=== PATIENT | female | born 1955 | race Caucasian/White ===

== ENCOUNTER → 2018-10-26 | Outpatient (CLI) | payer OTHER ==
--- NOTE | 2018-10-26 14:39 | RAD ---
CHEST PA LATERAL CLINICAL INDICATION: Bronchitis, chest pain, cough, tightness in chest COMPARISON: None FINDINGS: Heart is normal in size. Mild prominence of central bilateral peribronchial brandt seen. No focal consolidation. No pneumothorax or pleural effusion. Visualized bony thorax is within normal limits. IMPRESSION: Mild bronchitis. Electronically signed by: Reynaldo Haynes DO (10/26/2018 2:34 PM) [id number]
== END | disposition home or self-care (01) ==
LOC: RAD 10:06
PROVIDERS: ATTEND Physician Assistant Medical
DX: J40 Bronchitis, not specified as acute or chronic (principal); R05 Cough; R07.89 Other chest pain
CPT/HCPCS: 71046

== ENCOUNTER → 2019-09-23 | Outpatient (CLI) | payer OTHER ==
--- NOTE | 2019-09-23 09:06 | RAD ---
2 view left hip study with AP view pelvis Clinical indications: Left hip pain radiating to thigh. Patient fell 2 weeks ago. FINDINGS: No acute fracture or dislocation or lytic process is evident. No diastases of the symphysis pubis or either SI joint is seen. There is mild asymmetric joint space narrowing of the left hip joint. Tiny spur of the left femoral head is seen. There is mild degenerative spurring of the right femoral head without joint space narrowing of the right hip joint. IMPRESSION: No acute osseous abnormality. 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 Electronically signed by: Juan Negro MD (09/23/2019 9:03 AM) [facility]
== END | disposition home or self-care (01) ==
LOC: DXRAD 08:20
PROVIDERS: ATTEND Physician Assistant Medical
DX: M16.0 Bilateral primary osteoarthritis of hip (principal)
CPT/HCPCS: 73502

== ENCOUNTER → 2019-09-26 | Outpatient (CLI) | payer OTHER ==
--- NOTE | 2019-09-26 08:18 | RAD ---
EXAM: Lumbar spine, 3 views. HISTORY: Radiculopathy. COMPARISON: None. FINDINGS: 3 views of the lumbar spine are obtained. There is minimal grade 1 anterolisthesis of L5 on S1. There is multilevel endplate remodeling. There is slight disc space narrowing and vacuum phenomenon at L2-L3. There is facet arthropathy predominantly the lumbosacral junction. There are surgical clips within the upper abdomen. There is a suspected incidental peripherally calcified splenic artery aneurysm measuring 1.5 cm. IMPRESSION: 1. Multilevel degenerative change throughout the lumbar spine. 2. No acute osseous finding. Electronically signed by: Michell Bass MD (09/26/2019 8:15 AM) [facility]
== END | disposition home or self-care (01) ==
LOC: DXRAD 07:35
PROVIDERS: ATTEND Physician Assistant Medical
DX: M43.17 Spondylolisthesis, lumbosacral region (principal); M47.816 Spondylosis without myelopathy or radiculopathy, lumbar region; M12.88 Other specific arthropathies, not elsewhere classified, other specified site
CPT/HCPCS: 72110

== ENCOUNTER → 2020-09-05 | Outpatient (CLI) | payer OTHER ==
--- NOTE | 2020-09-05 11:07 | RAD ---
AP and Lateral Views of the Chest 09/05/2020 12:00 AM Indication: Reason: COUGH, COPD / Spl. Instructions: / History: Comparison: Chest radiograph October 26, 2018 Findings: There is no focal consolidation or infiltrate identified. Calcified granuloma, left lower lobe noted. The cardiomediastinal silhouette is within normal limits. There is no evidence of pneumothorax or pleural effusion. No acute osseous abnormalities are identified. Impression: No evidence of acute cardiopulmonary process. Electronically signed by: Lexa Veloz MD (09/05/2020 11:05 AM) [id number]
== END ==
LOC: PMG 09:33
PROVIDERS: ATTEND Physician Assistant Medical
DX: J44.9 Chronic obstructive pulmonary disease, unspecified (principal)
CPT/HCPCS: 71046

== ENCOUNTER → 2020-11-05 | Outpatient (CLI) | payer OTHER ==
--- NOTE | 2020-11-06 17:39 | RAD ---
Exam: Pelvis with bilateral hips INDICATION: Hip and back pain, no known injury TECHNIQUE: Frontal view of pelvis with frontal and frog-leg lateral views of the right and left hip Comparisons: None FINDINGS: Bone mineralization is normal. No acute or healed fractures. Soft tissues are unremarkable. There is mild degenerative change at the right hip joint. There is mild osteoarthritic change at the left hip joint. IMPRESSION: Mild bilateral osteoarthritic change at the hip joints. No acute abnormality identified. Electronically signed by: Dawn Young MD (11/06/2020 5:36 PM) [facility]
--- NOTE | 2020-11-06 17:42 | RAD ---
Exam: Lumbar spine 4 views INDICATION: Hip and back pain TECHNIQUE: Frontal, lateral, and bilateral oblique views Comparisons: 09/26/2019 FINDINGS: Vertebral body heights and alignment are well-maintained. There is mild degenerative disc disease greatest at L2-L3. Diffuse bilateral facet arthropathy noted in the lumbar spine greatest at L4-L5 and L5-S1. Visualized paraspinal soft tissues are unremarkable. IMPRESSION: Mild spondylotic changes lumbar spine as described above. Electronically signed by: Dawn Young MD (11/06/2020 5:39 PM) [facility]
== END ==
LOC: PMG 15:26
PROVIDERS: ATTEND Physician Assistant Medical
DX: M16.0 Bilateral primary osteoarthritis of hip (principal); M47.816 Spondylosis without myelopathy or radiculopathy, lumbar region; M51.36 Other intervertebral disc degeneration, lumbar region
CPT/HCPCS: 72110; 73521

== ENCOUNTER → 2021-06-03 | Outpatient (CLI) | payer OTHER ==
--- NOTE | 2021-06-03 15:29 | CARD ---
MR#: [id number] Date of Study: 06/03/2021 Ordering Physician: ABRAHAN SAGASTUME, Referring Physician: ABRAHAN SAGASTUME, Tech: Meka Morrell, [facility] APPROVED REPORT EXAM: Two-dimensional and M-mode echocardiogram with Doppler and color Doppler. Other Information HR: 87bpm INDICATION COPD Hypertension/HCVD RISK FACTORS Smoking 2D DIMENSIONS RVDd2.7 (2.9-3.5cm)Left Atrium(2D)2.7 (1.6-4.0cm) IVSd1.1 (0.7-1.1cm)Aortic Root(2D)2.6 (2.0-3.7cm) LVDd4.1 (3.9-5.9cm)LVOT Diameter2.0 (1.8-2.4cm) PWd0.9 (0.7-1.1cm)LVDs2.3 (2.5-4.0cm) FS (%) 44.9 %SV57.3 ml LVEF(%)74.6 (>50%) Aortic Valve AoV Peak Jacobo.164.1cm/sAoV VTI35.6cm AO Peak GR.10.8mmHgLVOT Peak Jacobo.105.1cm/s LVOT VTI 20.94cmAO Mean GR.6mmHg ROSALES (VMAX)2.40ry5XRX (VTI)1.92cm2 Mitral Valve MV E Zzzfoobv14.5cm/sMV DECEL CEMY212iv MV A Joeqfslo735.3cm/sE/A Ratio0.8 Pulmonary Valve PV Peak Jpkwwoaf21.8cm/sPV Peak Grad.3mmHg Tricuspid Valve TR P. Dmuldofb744ny/sRAP AVVNYFYR9mrNi TR Peak Gr.08mlYsOBZQ63ulJt Pulmonary Vein S1 Epzvzcvp43.5cm/sD2 Kylntpbh43.8cm/s LEFT VENTRICLE The left ventricle is normal size. There is borderline to mild concentric left ventricular hypertroph y. The left ventricular systolic function is normal. The Ejection Fraction is 60-65%. There is normal LV segmental wall motion. Transmitral Doppler flow pattern is Grade I-abnormal relaxation pattern. RIGHT VENTRICLE The right ventricle is normal size. There is normal right ventricular wall thickness. The right ventr icular systolic function is normal. ATRIA The left atrium size is normal. The right atrium size is normal. The interatrial septum is intact wit h no evidence for an atrial septal defect or patent foramen ovale as noted on 2-D or Doppler imaging. AORTIC VALVE The aortic valve is normal in structure and function. Doppler and Color Flow revealed no significant aortic regurgitation. There is no significant aortic valvular stenosis. Calculated aortic valve area is 2.2 cm2 with maximum pressure gradient of 11 mmHg and mean pressure gradient of 6 mmHg. MITRAL VALVE The mitral valve is normal in structure and function. There is no evidence of mitral valve prolapse. There is no mitral valve stenosis. Doppler and Color Flow revealed no mitral valve regurgitation note d. TRICUSPID VALVE The tricuspid valve is normal in structure and function. Doppler and Color Flow revealed trace tricus pid regurgitation with an estimated PAP of 33 mmHg. There is no tricuspid valve stenosis. PULMONIC VALVE The pulmonic valve is not well visualized. Doppler and Color Flow revealed trace pulmonic valvular re gurgitation. GREAT VESSELS The aortic root is normal in size. The IVC is normal in size and collapses >50% with inspiration. PERICARDIAL EFFUSION There is no evidence of significant pericardial effusion. Critical Notification Critical Value: No <Conclusion> The left ventricular systolic function is normal. The Ejection Fraction is 60-65%. There is normal LV segmental wall motion. Transmitral Doppler flow pattern is Grade I-abnormal relaxation pattern. Trace tricuspid regurgitation with an estimated PAP of 33 mmHg. There is no evidence of significant pericardial effusion. Signed by : Hal Hernandez, Electronically Approved : 06/03/2021 15:29:01
== END ==
LOC: ECHO 12:46
PROVIDERS: ATTEND Physician Assistant Medical
DX: I51.7 Cardiomegaly (principal); I10 Essential (primary) hypertension
CPT/HCPCS: 93306

== ENCOUNTER 2021-07-05 12:53 | Emergency (ER) | payer OTHER, MEDICARE ==
[~2021-07-05] VITALS: Ht 165.1 cm; Wt 78.2 kg
[2021-07-05 13:11] VITALS: BP 127/60
--- NOTE | 2021-07-05 13:30 | PHYS DOC ---
Past History Additional Past Medical Histor: diverticulosis Past Surgical History: Appendectomy, Cholecystectomy Alcohol Use: None General Adult EDM: Chief Complaint: LOWER EXTREMITY SWELLING HPI: HPI: 65-year-old female presents from Dr. Whitaker's office with abdominal distention and left lower leg swelling. The patient has done 2 different rounds of Lasix because she had bilateral lower extremity swelling. The right leg is gone down completely, but the left has come back and is still swollen. Her calf is painful and she is getting a tingling sensation radiates up and down the leg. Her last Lasix pills 5 days ago. Over the last 2 days, she is also developed abdominal distention. Her abdomen is much more full and firm than normal. She denies fever or chills. She does admit to shortness of breath and decreased exercise tolerance. The patient is a smoker. Review of Systems: Review of Systems: Constitutional: Denies fever or chills Eyes: Denies change in visual acuity HENT: Denies nasal congestion or sore throat Respiratory: Denies cough or shortness of breath Cardiovascular: Denies chest pain or edema GI: No abdominal distention. Denies nausea, vomiting, bloody stools or diarrhea : Denies dysuria Musculoskeletal: Left lower leg swelling Integument: Denies rash Neurologic: Denies headache, focal weakness or sensory changes Endocrine: Denies polyuria or polydipsia Lymphatic: Denies swollen glands Psychiatric: Denies depression or anxiety Allergies: Allergies: Allergies Coded Allergies Type Severity Reaction Last Updated Verified No Known Drug Allergies 07/05/21 No Physical Exam: PE: Constitutional: Well developed, well nourished, no acute distress, non-toxic appearance. [] HENT: Normocephalic, atraumatic, bilateral external ears normal, oropharynx moist, no oral exudates, nose normal. [] Eyes: PERRLA, EOMI, conjunctiva normal, no discharge. [] Neck: Normal range of motion, no tenderness, supple, no stridor. [] Cardiovascular: Heart rate regular rhythm, no murmur [] Lungs & Thorax: Bilateral breath sounds clear to auscultation [] Abdomen: Bowel sounds normal, firm, distended, no tenderness. [] Skin: Warm, dry, no erythema, no rash. [] Back: No tenderness, no CVA tenderness. [] Extremities: Tenderness of the left calf, 2+ pitting edema of the left lower leg. [] Neurologic: Alert and oriented X 3, normal motor function, normal sensory function, no focal deficits noted. [] Psychologic: Affect normal, judgement normal, mood normal. [] Current Patient Data: Vital Signs: Vital Signs Date Time Temp Pulse Resp B/P (MAP) Pulse Ox O2 Delivery O2 Flow Rate FiO2 07/05/21 13:11 97.0 112 26 127/60 (82) 93 EKG: EKG: Sinus rhythm, rate 108, normal axis, no ST elevation or depression. [] Radiology/Procedures: Radiology/Procedures: [] Impressions: STUDY: US DPLX VENOUS EXTREMITY LOWER LT INDICATION: Lower extremity swelling and pain. DVT. TECHNIQUE: Color-flow and pulsed wave duplex ultrasound with compression of venous structures of the left lower extremity. COMPARISON: None. FINDINGS: Duplex ultrasound with compression of the deep venous structures of the left lower extremity from the common femoral vein through the popliteal vein is negative for DVT. The posterior tibial and peroneal veins are segmentally visualized and patent where seen. Normal venous waveforms and augmentation are noted throughout. IMPRESSION: No deep venous thrombosis throughout the left lower extremity. Electronically signed by: HILARIO BARBOZA MD (07/05/2021 2:08 PM) [facility] DICTATED AND SIGNED BY: HILARIO BARBOZA MD DATE: 07/05/21 1407 CC: SHAVON LENZ DO; ABRAHAN SAGASTUME PA ~MTH0 0 EXAMINATION: CT abdomen and pelvis with IV contrast. INDICATION:65 years, Female, abdominal distention. TECHNIQUE: Axial CT images of the abdomen and pelvis were obtained. Coronal and sagittal reformatted performed. COMPARISON: None. Exposure: One or more of the following individualized dose reduction techniques were utilized for this examination: 1. Automated exposure control 2. Adjustment of the mA and/or kV according to patient size 3. Use of iterative reconstruction technique. FINDINGS: LOWER CHEST: Calcified granuloma in the left lower lobe. Subsegmental atelectasis versus scarring in the right middle lobe ABDOMEN/PELVIS: Mild hepatomegaly with diffuse steatosis, measures 17 cm in length. No suspicious focal hepatic lesion. Spleen and pancreas are unremarkable. Cholecystectomy. No biliary ductal dilatation. Nodular thickening of the left adrenal gland without discrete nodule. Right adrenal gland is unremarkable. No hydronephrosis or nephrolithiasis in either kidney. No bowel obstruction. Few colonic diverticulosis without diverticulitis. Appendix is not seen with certainty. Apparent wall thickening of the sigmoid colon without adjacent fat stranding, may relate to underdistention lumen versus diverticular disease. Moderate aortoiliac atherosclerotic calcifications without narrowing or dilatation. No ascites or pneumoperitoneum. No abdominopelvic lymphadenopathy by size criteria. There is a 1.2 cm soft tissue nodule with peripheral calcification in the gastrohepatic pancreatic interval, may represent calcified lymph node. Underdistended urinary bladder which limits evaluation. Unremarkable uterus. There is a 4.8 cm probably benign left adnexal cystic lesion with eccentric calcified focus. No discrete soft tissue component. MUSCULOSKELETAL: No acute osseous process. Multilevel degenerative changes in the spine. Multiple calcified injection granulomas in the gluteal regions. Small to moderate right and small left fat-containing inguinal hernias. IMPRESSION: 1. No acute abnormality in the abdomen or pelvis, specifically no evidence of bowel obstruction. 2. Diffuse hepatic steatosis. 3. Probably benign 4.8 cm left adnexal cystic lesion with eccentric calcified focus. Further evaluation with pelvic ultrasound is recommended White Paper of the ACR Incidental Findings Committee II on Adnexal Findings (J Am Jatinder Radiol 2013;10:675-68) Electronically signed by: Gabriela Dodd MD (07/05/2021 2:50 PM) [id number] DICTATED AND SIGNED BY: GABRIELA DODD MD DATE: 07/05/21 1439 CC: SHAVON LENZ DO; ABRAHAN SAGASTUME ~MTH0 0 XR CHEST 1V History: Shortness of breath. Comparison: 09/05/2020 Technique: Portable AP radiograph of the chest. Findings: The lungs are adequately inflated. There is subtle opacification of the left lower lung. No pleural effusion or pneumothorax. Cardiac mediastinal silhouette and pulmonary vasculature are within normal limits. Osseous structures and soft tissues are unremarkable. Impression: 1. Subtle left lower lung opacity concerning for infiltrate or atelectasis. Electronically signed by: Delgado Haynes MD (07/05/2021 1:41 PM) [id number] DICTATED AND SIGNED BY: DELGADO HAYNES MD DATE: 07/05/21 1339 CC: SHAVON LENZ DO; ABRAHAN SAGASTUME ~MTH0 0 US PELVIS W/TV History: Reason: LT ADNEXAL MASS / Spl. Instructions: / History: Comparison: CT July 05, 2021 Technique: Grayscale and color Doppler imaging of the pelvis was performed using transabdominal and transvaginal technique. Findings: The uterus measures 6.0 x 3.8 x 2.8 cm. Small nabothian cyst. Minimal fluid within the endometrial canal. The endometrial stripe measures 4 mm. Right ovary not identified due to positioning and overlying structures. Left ovary measures 4.5 x 3.7 x 2.9 cm. Left ovarian simple cyst measures 4.5 x 3.7 x 2.9 cm. Normal Doppler flow to the ovaries. No adnexal masses are seen. IMPRESSION: 1. Left ovarian cyst. Recommend 3-6 month follow-up. 2. Minimal fluid within the endometrial canal. Electronically signed by: Tadeo Tobias DO (07/05/2021 4:12 PM) [facility] DICTATED AND SIGNED BY: TADEO TOBIAS DO DATE: 07/05/21 1604 CC: SHAVON LENZ DO; ABRAHAN SAGASTUME PA ~MTH0 0 Heart Score: C/O Chest Pain: No Risk Factors: Risk Factors: DM, Current or recent (<one month) smoker, HTN, HLP, family history of CAD, obesity. Risk Scores: Score 0 - 3: 2.5% MACE over next 6 weeks - Discharge Home Score 4 - 6: 20.3% MACE over next 6 weeks - Admit for Clinical Observation Score 7 - 10: 72.7% MACE over next 6 weeks - Early Invasive Strategies Course & Med Decision Making: Course & Med Decision Making Pertinent Labs and Imaging studies reviewed. (See chart for details) The patient's labs are unremarkable. Her liver enzymes are normal. Her proBNP is normal. Troponin is negative. EKG is unremarkable. The patient CT of the abdomen and pelvis shows diffuse hepatic steatosis and a 4.8 cm left adnexal cystic lesion. There are no other significant findings. See official read for more details. I do recommend ultrasound for further clarification. I have ordered this. Chest x-ray shows subtle left lower lung opacity which could be atelectasis or infiltrate. The labs and presentation do not support infiltrate. The patient's ultrasound of the pelvis also suggests a cyst instead of mass. I have advised the patient try JUNG hose to help with her uneven lower extremity edema. She is stable for discharge at this time. [] Carloson Disclaimer: Dragon Disclaimer: This electronic medical record was generated, in whole or in part, using a voice recognition dictation system. Departure Departure: Impression: Primary Impression: Edema of left lower leg Additional Impression: Left ovarian cyst Disposition: HOME / SELF CARE / HOMELESS Condition: STABLE Referrals: ABRAHAN SAGASTUME (PCP) Patient Instructions: Edema, Sehc-oz-Qlex, Ovarian Cyst, [id number] Scripts Oxycodone HCl/Acetaminophen (Percocet 5-325 mg Tablet) 1 Each Tablet 1 TAB PO PRN QID PRN for PAIN MDD 4 Tablet(s), #16 TAB 0 Refills Prov: SHAVON LENZ DO 07/05/21 SHAVON LENZ DO Jul 05, 2021 13:30
--- NOTE | 2021-07-05 13:38 | EKG ---
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
--- NOTE | 2021-07-05 13:43 | RAD ---
XR CHEST 1V History: Shortness of breath. Comparison: 09/05/2020 Technique: Portable AP radiograph of the chest. Findings: The lungs are adequately inflated. There is subtle opacification of the left lower lung. No pleural e ffusion or pneumothorax. Cardiac mediastinal silhouette and pulmonary vasculature are within normal l imits. Osseous structures and soft tissues are unremarkable. Impression: 1. Subtle left lower lung opacity concerning for infiltrate or atelectasis. Electronically signed by: Delgado Bryant MD (07/05/2021 1:41 PM) [id number]
[2021-07-05 13:52] LABS: BASO % 1 % (0-3); EOS # 0.1 x10^3/uL (0.0-0.7); EOS % 1 % (0-3); HEMATOCRIT 43.4 % (36.0-47.0); LYMPH # 3.9 x10^3/uL (1.0-4.8); LYMPH % 49 % (24-48); MEAN CORPUSCULAR HEMOGLOBIN 33 pg (25-35); MEAN CORPUSCULAR HGB CONC 35 g/dL (31-37); MEAN CORPUSCULAR VOLUME 96 fL (79-100); MONO # 0.9 x10^3/uL (0.0-1.1); MONO % 11 % (0-9); NEUT # 3.1 x10^3uL (1.8-7.7); NEUT % 39 % (31-73); PLATELET COUNT 302 x10^3/uL (140-400); RED BLOOD COUNT 4.53 x10^6/uL (3.50-5.40); RED CELL DISTRIBUTION WIDTH 12.8 % (11.5-14.5); WHITE BLOOD COUNT 7.9 x10^3/uL (4.0-11.0)
[2021-07-05 13:58] LABS: CALCIUM 9.1 mg/dL (8.5-10.1); CREATININE 0.8 mg/dL (0.6-1.0); POTASSIUM 3.7 mmol/L (3.5-5.1)
[2021-07-05 14:10] LABS: ALBUMIN 3.5 g/dL (3.4-5.0); ALBUMIN/GLOBULIN RATIO 0.7 (1.0-1.7); TOTAL BILIRUBIN 0.2 mg/dL (0.2-1.0); TOTAL PROTEIN 8.2 g/dL (6.4-8.2)
--- NOTE | 2021-07-05 14:10 | RAD ---
STUDY: US DPLX VENOUS EXTREMITY LOWER LT INDICATION: Lower extremity swelling and pain. DVT. TECHNIQUE: Color-flow and pulsed wave duplex ultrasound with compression of venous structures of the left lower extremity. COMPARISON: None. FINDINGS: Duplex ultrasound with compression of the deep venous structures of the left lower extremity from the common femoral vein through the popliteal vein is negative for DVT. The posterior tibial and peroneal veins are segmentally visualized and patent where seen. Normal veno us waveforms and augmentation are noted throughout. IMPRESSION: No deep venous thrombosis throughout the left lower extremity. Electronically signed by: HILARIO BARBOZA MD (07/05/2021 2:08 PM) [facility]
[2021-07-05] MEDS: IOHEXOL 300 MG/ML 75 ML VIAL. IV ONE (14:31)
--- NOTE | 2021-07-05 14:52 | RAD ---
EXAMINATION: CT abdomen and pelvis with IV contrast. INDICATION:65 years, Female, abdominal distention. TECHNIQUE: Axial CT images of the abdomen and pelvis were obtained. Coronal and sagittal reformatted performed. COMPARISON: None. Exposure: One or more of the following individualized dose reduction techniques were utilized for thi s examination: 1. Automated exposure control 2. Adjustment of the mA and/or kV according to patient size 3. Use of iterative reconstruction technique. FINDINGS: LOWER CHEST: Calcified granuloma in the left lower lobe. Subsegmental atelectasis versus scarring in the right mid dle lobe ABDOMEN/PELVIS: Mild hepatomegaly with diffuse steatosis, measures 17 cm in length. No suspicious focal hepatic lesio n. Spleen and pancreas are unremarkable. Cholecystectomy. No biliary ductal dilatation. Nodular thick ening of the left adrenal gland without discrete nodule. Right adrenal gland is unremarkable. No hydr onephrosis or nephrolithiasis in either kidney. No bowel obstruction. Few colonic diverticulosis without diverticulitis. Appendix is not seen with ce rtainty. Apparent wall thickening of the sigmoid colon without adjacent fat stranding, may relate to underdistention lumen versus diverticular disease. Moderate aortoiliac atherosclerotic calcifications without narrowing or dilatation. No ascites or pneumoperitoneum. No abdominopelvic lymphadenopathy b y size criteria. There is a 1.2 cm soft tissue nodule with peripheral calcification in the gastrohepa tic pancreatic interval, may represent calcified lymph node. Underdistended urinary bladder which munson its evaluation. Unremarkable uterus. There is a 4.8 cm probably benign left adnexal cystic lesion wit h eccentric calcified focus. No discrete soft tissue component. MUSCULOSKELETAL: No acute osseous process. Multilevel degenerative changes in the spine. Multiple calcified injection granulomas in the gluteal regions. Small to moderate right and small left fat-containing inguinal her nias. IMPRESSION: 1. No acute abnormality in the abdomen or pelvis, specifically no evidence of bowel obstruction. 2. Diffuse hepatic steatosis. 3. Probably benign 4.8 cm left adnexal cystic lesion with eccentric calcified focus. Further evaluati on with pelvic ultrasound is recommended White Paper of the ACR Incidental Findings Committee II on Adnexal Findings (J Am Jatinder Radiol 2013;10 :675-68) Electronically signed by: Marielle Dodd MD (07/05/2021 2:50 PM) [id number]
[2021-07-05] MEDS ORDERED: OXYC-325 PO (15:24)
[2021-07-05] MEDS: oxyCODONE/APAP 5/325 1 TAB TABLET PO ONE (15:30)
--- NOTE | 2021-07-05 16:14 | RAD ---
US PELVIS W/TV History: Reason: LT ADNEXAL MASS / Spl. Instructions: / History: Comparison: CT July 05, 2021 Technique: Grayscale and color Doppler imaging of the pelvis was performed using transabdominal and t ransvaginal technique. Findings: The uterus measures 6.0 x 3.8 x 2.8 cm. Small nabothian cyst. Minimal fluid within the endometrial c anal. The endometrial stripe measures 4 mm. Right ovary not identified due to positioning and overlying structures. Left ovary measures 4.5 x 3.7 x 2.9 cm. Left ovarian simple cyst measures 4.5 x 3.7 x 2.9 cm. Normal Doppler flow to the ovaries. No adnexal masses are seen. IMPRESSION: 1. Left ovarian cyst. Recommend 3-6 month follow-up. 2. Minimal fluid within the endometrial canal. Electronically signed by: Tadeo Tobias DO (07/05/2021 4:12 PM) [facility]AN[facility]
[2021-07-05] MEDS ORDERED: FURO-68 PO (16:48)
== END 2021-07-05 16:53 | disposition home or self-care (01) ==
LOC: ER 12:53
DX: R60.9 Edema, unspecified (principal); N83.202 Unspecified ovarian cyst, left side; Z90.49 Acquired absence of other specified parts of digestive tract
CPT/HCPCS: 36415; 71045; 74177; 76830; 76856; 80053; 83880; 84484; 85025; 93005; 93971; 99285; Q9967

== ENCOUNTER → 2021-10-16 | Outpatient (CLI) | payer OTHER, MEDICARE ==
[~2021-10-16] MED LIST: FURO-68 PO; OXYC-325 PO
--- NOTE | 2021-10-16 10:54 | RAD ---
EXAM: Chest, 2 views. HISTORY: Cough and fever. COMPARISON: 07/05/2021 FINDINGS: 2 views of the chest are obtained. There is no infiltrate, pleural effusion or pneumothorax . The heart is normal in size. There are calcified granulomas. IMPRESSION: No acute pulmonary finding. Electronically signed by: Michell Bass MD (10/16/2021 10:52 AM) [id number]
== END ==
LOC: RAD 10:35
PROVIDERS: ATTEND Physician Assistant Medical
DX: J44.9 Chronic obstructive pulmonary disease, unspecified (principal); R06.02 Shortness of breath; R50.9 Fever, unspecified; R05.9 Cough, unspecified
CPT/HCPCS: 71046

== ENCOUNTER 2021-10-29 09:00 | Emergency (ER) | payer OTHER, MEDICARE ==
[~2021-10-29] VITALS: Ht 165.1 cm; Wt 79.5 kg
[2021-10-29] MEDS ORDERED: KETOROLAC 30 MG/ML VIAL. IVP ONE (09:30)
--- NOTE | 2021-10-29 09:31 | PHYS DOC ---
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) Past Surgical History: Appendectomy, Cholecystectomy (BROOKE RUBIO APRN) Alcohol Use: None (BROOKE RUBIO APRN) Adult General Chief Complaint Chief Complaint: WEAKNESS/GENERALIZED HPI HPI Patient is a 66-year-old female who presents emergency department with chief complaint of testing positive for the COVID-19 virus 2 weeks ago, since then has experienced general malaise with with body aches, loss of taste and loss of smell, states has been sleeping a lot and has developed lower to mid upper back discomfort for the past week, has noticed her urine is looking darker than normal however denies increased urination, urinary pressure, urinary pain or other dysuria, denies seeing blood in her urine, denies nausea, vomiting, or diarrhea. Denies chest pains, reports feeling short of breath at times that is relieved with her albuterol MDI inhaler, describes her back pain as an achy pain, slow onset, 10 out of 10 pain currently, has not taken [id number] or prescription pain medications today, has not taken her other home medications such as Lasix today, reports when she takes [id number] Advil her back pain is relieved down to a 5 out of 10. Patient denies headaches, syncopal or near syncopal episodes, denies other physical complaints or physical concerns. Patient does admit to cigarette smoking daily, denies alcohol use or illicit drug use. (BROOKE RUBIO APRN) Review of Systems Review of Systems 14 body systems of review of systems have been reviewed. See HPI for pertinent positives and negative responses, otherwise all other systems are negative, nonpertinent or noncontributory. Constitutional: Negative except as outlined in HPI above. Skin: Negative except as outlined in HPI above. Eyes: Negative except as outlined in HPI above. HENT: Negative except as outlined in HPI above. Respiratory: Negative except as outlined in HPI above. Cardiovascular: Negative except as outlined in HPI above. GI: Negative except as outlined in HPI above. : Negative except as outlined in HPI above. Musculoskeletal: Negative except as outlined in HPI above. Integument: Negative except as outlined in HPI above. Neurologic: Negative except as outlined in HPI above. Endocrine: Negative except as outlined in HPI above. Lymphatic: Negative except as outlined in HPI above. Psychiatric: Negative except as outlined in HPI above. (BROOKE RUBIO APRN) Allergies Allergies Allergies Coded Allergies Type Severity Reaction Last Updated Verified No Known Drug Allergies 07/05/21 No (BROOKE RUBIO APRN) Physical Exam Physical Exam Constitutional: Well developed, well nourished, no acute distress, non-toxic appearance. 66-year-old female in no apparent distress. HENT: Normocephalic, atraumatic. Oropharynx moist, pink, no deep tissue infectious process appreciated, no lymphadenopathy of the head or neck appreciated, bilateral TMs intact and within normal limits, patient speaking in normal voice tones. Eyes: Conjunctiva normal, no discharge. Neck: Normal range of motion, no stridor. No C-spine pain, no nuchal rigidity, no meningismus signs. Cardiovascular: No cyanosis appreciated, distal cap refill less than 2 seconds. Heart sounds S1-S2, regular rate and rhythm. Lungs & Thorax: Patient is tachypneic, lung sounds coarse all lung forrest, respiratory rate 28/min, no use of accessory muscles appreciated. Abdomen: Nontender, no abnormalities noted. Normal bowel sounds all 4 quadrants. Skin: Warm, dry, no erythema, no rash. Back: No deformities appreciated, no midline spinal tenderness, pain to palpation along the muscular structures of the lumbar and upper mid back area, no crepitus or subcu air appreciated, no skin discoloration appreciated. Extremities: No tenderness, no cyanosis, no clubbing, ROM intact, 1+ bilateral pedal edema, 2+ radial and dorsalis pedis pulses bilaterally. Neurologic: Alert and oriented X 3, normal motor function, normal sensory function, no focal deficits noted. Psychologic: Affect normal, judgement normal, mood normal. (BROOKE RUBIO APRN) Current Patient Data Vital Signs Vital Signs Date Time Temp Pulse Resp B/P (MAP) Pulse Ox O2 Delivery O2 Flow Rate FiO2 10/29/21 09:16 102 24 106/76 (86) 93 Room Air Lab Results Laboratory Tests Test 10/29/21 09:26 10/29/21 09:39 Urine Collection Type Unknown Urine Color Yellow Urine Clarity Hazy Urine pH 6.5 Urine Specific [place] 1.015 Urine Protein Neg Urine Glucose (UA) Neg mg/dL Urine Ketones (Stick) Neg mg/dL Urine Blood Neg Urine Nitrite Neg Urine Bilirubin Neg Urine Urobilinogen Dipstick 0.2 mg/dL Urine Leukocyte Esterase Mod Urine RBC 1-2 /HPF Urine WBC 5-10 /HPF Urine Squamous Epithelial Cells Many /LPF Urine Bacteria 0 /HPF White Blood Count 9.8 x10^3/uL Red Blood Count 4.53 x10^6/uL Hemoglobin 14.9 g/dL Hematocrit 43.5 % Mean Corpuscular Volume 96 fL Mean Corpuscular Hemoglobin 33 pg Mean Corpuscular Hemoglobin Concent 34 g/dL Red Cell Distribution Width 12.6 % Platelet Count 554 x10^3/uL Neutrophils (%) (Auto) 45 % Lymphocytes (%) (Auto) 41 % Monocytes (%) (Auto) 12 % Eosinophils (%) (Auto) 2 % Basophils (%) (Auto) 1 % Neutrophils # (Auto) 4.4 x10^3uL Lymphocytes # (Auto) 4.0 x10^3/uL Monocytes # (Auto) 1.1 x10^3/uL Eosinophils # (Auto) 0.2 x10^3/uL Basophils # (Auto) 0.1 x10^3/uL Sodium Level 140 mmol/L Potassium Level 4.0 mmol/L Chloride Level 101 mmol/L Carbon Dioxide Level 33 mmol/L Anion Gap 6 Blood Urea Nitrogen 17 mg/dL Creatinine 0.9 mg/dL Estimated GFR (Cockcroft-Gault) 62.6 BUN/Creatinine Ratio 19 Glucose Level 103 mg/dL Calcium Level 8.3 mg/dL Phosphorus Level 4.9 mg/dL Magnesium Level 2.2 mg/dL Total Bilirubin 0.2 mg/dL Aspartate Amino Transf (AST/SGOT) 20 U/L Alanine Aminotransferase (ALT/SGPT) 26 U/L Alkaline Phosphatase 149 U/L Creatine Kinase 54 U/L Troponin I High Sensitivity 5 ng/L LO-Xed-R-Type Natriuretic Peptide 15 pg/mL Total Protein 8.1 g/dL Albumin 3.2 g/dL Albumin/Globulin Ratio 0.7 Lipase 86 U/L Current Medications Medications (Trade) Dose Ordered Sig/Sunita Route PRN Reason Start Time Stop Time Status Last Admin Dose Admin Ketorolac Tromethamine (Toradol 30mg Vial) 30 mg 1X ONCE IVP 10/29/21 09:30 10/29/21 09:31 DC 10/29/21 09:47 (BROOKE RUBIO APRN) EKG EKG EKG performed at 955 by ED nursing staff shows a normal sinus rhythm without other ectopy, heart rate 89 bpm, FL interval 0.138, QTc interval 0.456, no acute STEMI, no ACS, no acute ischemia appreciated, EKG interpreted by ED attending physician Dr. Mendoza. (BROOKE RUBIO APRN) Radiology/Procedures Radiology/Procedures REASON: Shortness of breath, COVID-19 positive 10-08-21 PROCEDURE: CHEST AP ONLY EXAMINATION: XR CHEST 1V. HISTORY: 66 years Female Reason: Shortness of breath, COVID-19 positive 10-08-21 / COMPARISON: October 16, 2021. Findings: The lungs are clear. The heart size is normal. There is no effusion or pneumothorax. The mediastinum and zunilda appear unremarkable. Impression: Unremarkable study. Electronically signed by: Martin Botello MD (10/29/2021 9:52 AM) [id number] (BROOKE RUBIO APRN) Heart Score C/O Chest Pain: No Risk Factors: Risk Factors: DM, Current or recent (<one month) smoker, HTN, HLP, family history of CAD, obesity. Risk Scores: Risk Factors: DM, Current or recent (<one month) smoker, HTN, HLP, family history of CAD, obesity. (BROOKE RUBIO APRN) Course & Med Decision Making Course & Med Decision Making Pertinent Labs and Imaging studies reviewed. (See chart for details) Six 6-year-old female, vital signs reviewed, resents emerged from concerning ongoing symptoms of COVID-19 virus. Physical presentation consistent with viral syndrome, patient does have COPD history and has not taken her medications, with coarse lung sounds and symptomatic back pain will order urinalysis assay, EKG, high-sensitivity troponin I, NT proBNP, CBC, CMP, mag, Phos, CK, chest x-ray, the patient is not hypoxic, maintains a 94 to 95% O2 sat on room air, will give Toradol for what is most likely musculoskeletal back pain, will monitor vital signs and reevaluate after period of time. EKG unremarkable, chest x-ray unremarkable, labs unremarkable or at baseline. The patient's urine is not infected. The patient remains 94 to 95% O2 sat on room air without tachypnea or respiratory distress, patient remains nontoxic in appearance, upon reevaluation of the patient, patient reports relief in back pain from medication given in ED. Discussed with patient viral syndrome symptoms ongoing from positive COVID-19 test. Patient requested retesting, discussed with patient she is already positive for COVID-19 virus, recommended calling primary care provider for ongoing management of her COVID-19 virus symptoms. Discussed with patient cigarette smoking cessation. Will prescribe ketorolac tablets for ongoing or returning back pain. Continue to take all home medications as prescribed by her primary care provider, discussed return ER precautions and concerns, patient gave verbal understanding of and is amenable to ED discharge planning. (BROOKE RUBIO APRN) Course & Med Decision Making I was the Attending physician on the above date of service of this patient. This patient was evaluated, examined, treated, and dispositioned from the emergency department by the mid-level practitioner. Although I was working at the time , no assistance was requested. Electronically signed, Jolynn Mendoza DO (JOLYNN MENDOZA DO) Jaleesa Disclaimer Dragon Disclaimer This electronic medical record was generated, in whole or in part, using a voice recognition dictation system. (BROOKE RUBIO APRN) Departure Departure: Impression: Primary Impression: COVID-19 Additional Impressions: Back pain Viral syndrome Cigarette smoker Disposition: 01 HOME / SELF CARE / HOMELESS Condition: GOOD Referrals: ABRAHAN SAGASTUME (PCP) Patient Instructions: Back Pain, Adult, Viral Syndrome Additional Instructions: You were seen today in the emergency department for ongoing symptoms of your recently diagnosed COVID-19 virus infection, your chest x-ray is clear does not show signs of pneumonia or other infectious process, your lab work did not show any concerning signs of infection or other electrolyte abnormalities. You had expressed pain relief with the medication given in the emergency department today, I will prescribe a short regimen of ketorolac tablets to use for any on going or returning back discomfort or body aches. As we discussed, I do recommend you stop smoking cigarettes as this may help clear up your chronic cough and sputum production and also prevent other health problems related to cigarette smoking. Please follow-up with your primary care provider this week for ongoing management of your COVID-19 virus infection symptoms. Please con tinue to take all of your home medications as prescribed by your primary care provider. Thank you for visiting our Emergency Department. It was a pleasure taking care of you today in the emergency department and we appreciate you trusting us with your care. If any additional problems come up don't hesitate to return to visit us. Please follow up with your primary care provider so they can plan additional care if needed and know about the problem that you had. If symptoms worsen come back to the Emergency Department. Any concerning symptoms that start such as chest pain, shortness of air, weakness or numbness on one side of the body, running high fevers or any other concerning symptoms return to the ER. You have been tested for or diagnosed with COVID-19. It is an infection caused by a new type of coronavirus. COVID-19 will cause cold-like or mild flu symptoms in most. It can cause more severe symptoms like problems breathing in some. There is no treatment for COVID-19. The body will clear the infection over time. Self-care will help to ease discomfort. Steps to Take: Self-Care Rest as needed. Healthy habits may help you feel better. Steps include: Choose healthy foods including fruits and vegetables. Drink water throughout the day. Get plenty of sleep each night. If you smoke, try to quit. It may ease breathing. Avoid alcohol. Keep Others Healthy The virus can spread to others. Droplets are released every time you sneeze or cough. The droplets can get into the mouth, nose, or eyes of people near you and lead to infection. To lower the chances of spreading COVID-19 to others: Stay at home until your doctor has said it is safe to leave. If you tested positive this will mean staying isolated until both of the following are true: At least 7 days have passed since the start of illness. You are free of fever for at least 72 hours without the use of medicine. During this time: - Avoid public areas, events, or transportation. Do not return to work or school until your doctor has said it is safe to do so. - Call ahead if you need to go to a medical center. Let them know you may have COVID-19. It will help them guide you where to go. They may also ask you to wear a facemask when you come to the office. - If you call for emergency medical services, let them know you may have COVID- 19. While at home: - Try to avoid close contact with others. Stay about 6 feet away. - If possible, spend most of your time in a separate room from others. - Use a face mask if you will be in close contact with others such as sharing a room or vehicle. - Have someone wipe down common surfaces in the home. Use household senior financial analyst every day on areas like doorknobs, counters, or sinks. - Cough or sneeze into a tissue. Throw the tissue away right after use. If a tissue is not available, cough or sneeze into your elbow. - Wash your hands often. Wash them after sneezing or coughing. Use soap and wa ter and wash for at least 20 seconds. Alcohol based hand laundry or dry cleaners counter clerk can be used if soap and water is not available. - Do not prepare food for others. Avoid sharing personal items like forks, spoons, or toothbrushes. - Avoid close contact with pets while you are sick. There is no evidence of the virus passing to pets. This is a safety step until more is known about this virus. Isolation can be frustrating. Social interaction can help. Keep in touch with friends and family through phone and tech options. You can still interact with others in your home, just keep a safe distance of about 6 feet. Follow-up: Your doctors office will check in with you to see if there are any changes in your health. You may be asked to keep track of symptoms to share with them. They will also let you know when you are clear to be in public again. Problems to Look Out For: Contact your doctor if your recovery is not going as you expect. Get emergency care if you have problems such as: - Trouble breathing - Nonstop chest pain or pressure - Changes in awareness, confusion, or problems waking - Lips or face have bluish color - Worsening of symptoms If you think you have an emergency, call for emergency medical services right away. As taken from [facility] Ketorolac Tromethamine (KETOROLAC TROMETHAMINE) 10 Mg Tablet 1 TAB PO PRN TID PRN for BREAKTHROUGH PAIN, #15 TAB 0 Refills Take 1 tablet by mouth up to 3 times a day for breakthrough back pain. Prov: JOANNEBROOKE TAILINGS WORKER 10/29/21 Problem Qualifiers Additional Impressions: Back pain Back pain location: back pain in unspecified location Chronicity: unspecified Back pain laterality: bilateral Qualified Codes: M54.9 - Dorsalgia, unspecified BROOKE RUBIO APRN Oct 29, 2021 09:31 JOLYNN MENDOZA DO Oct 30, 2021 07:58
--- NOTE | 2021-10-29 09:55 | RAD ---
EXAMINATION: XR CHEST 1V. HISTORY: 66 years Female Reason: Shortness of breath, COVID-19 positive 10-08-21 / COMPARISON: October 16, 2021. Findings: The lungs are clear. The heart size is normal. There is no effusion or pneumothorax. The mediastinum and zunilda appear unremarkable. Impression: Unremarkable study. Electronically signed by: Martin Botello MD (10/29/2021 9:52 AM) [id number]
[2021-10-29 09:56] LABS: BASO # 0.1 x10^3/uL (0.0-0.2); BASO % 1 % (0-3); EOS # 0.2 x10^3/uL (0.0-0.7); EOS % 2 % (0-3); HEMATOCRIT 43.5 % (36.0-47.0); HEMOGLOBIN 14.9 g/dL (12.0-15.5); LYMPH % 41 % (24-48); MEAN CORPUSCULAR HEMOGLOBIN 33 pg (25-35); MEAN CORPUSCULAR HGB CONC 34 g/dL (31-37); MEAN CORPUSCULAR VOLUME 96 fL (79-100); MONO # 1.1 x10^3/uL (0.0-1.1); MONO % 12 % (0-9); NEUT # 4.4 x10^3uL (1.8-7.7); NEUT % 45 % (31-73); PLATELET COUNT 554 x10^3/uL (140-400); RED BLOOD COUNT 4.53 x10^6/uL (3.50-5.40); RED CELL DISTRIBUTION WIDTH 12.6 % (11.5-14.5); WHITE BLOOD COUNT 9.8 x10^3/uL (4.0-11.0)
[2021-10-29 10:04] LABS: CALCIUM 8.3 mg/dL (8.5-10.1); CREATININE 0.9 mg/dL (0.6-1.0); GFR 62.6
--- NOTE | 2021-10-29 10:05 | EKG ---
[address] [address] Test Date: 2021-10-29 Test Time: 09:55:36 Pat Name: LOWELL PERAZA Department: Room: Gender: F Order Entry Administrator: YANIV : 1955 Requested By: BROOKE RUBIO Order Number: [id number] Reading MD: Hal Hernandez Measurements Intervals [place] Rate: 89 P: 66 OK: 138 QRS: 54 QRSD: 88 T: 38 QT: 374 QTc: 456 Interpretive Statements SINUS RHYTHM NORMAL ECG Electronically Signed On 10-30-2021 19:36:04 TELLERS SUPERVISOR by Hal Hernandez
[2021-10-29 10:12] LABS: BACTERIA,URINE 0 /HPF (0-FEW); BILIRUBIN,URINE NEG (NEG); CLARITY,URINE HAZY; COLOR,URINE YELLOW; GLUCOSE,URINE NEG (NEG); NITRITE,URINE NEG (NEG); SQUAMOUS EPITHELIAL CELL,UR MANY /LPF; UROBILINOGEN,URINE 0.2 mg/dL (0.2 mg/dL)
[2021-10-29 10:16] LABS: ALBUMIN 3.2 g/dL (3.4-5.0); ALBUMIN/GLOBULIN RATIO 0.7 (1.0-1.7); MAGNESIUM 2.2 mg/dL (1.8-2.4); PHOSPHORUS 4.9 mg/dL (2.6-4.7); TOTAL BILIRUBIN 0.2 mg/dL (0.2-1.0); TOTAL PROTEIN 8.1 g/dL (6.4-8.2)
[2021-10-29 10:30] VITALS: BP 102/61
[2021-10-29] MEDS ORDERED: KETO10TA PO (10:41)
== END 2021-10-29 10:53 | disposition home or self-care (01) ==
LOC: ER 09:00
DX: U07.1 COVID-19 (principal); B34.9 Viral infection, unspecified; M54.59 Other low back pain; F17.210 Nicotine dependence, cigarettes, uncomplicated
CPT/HCPCS: 36415; 71045; 80053; 81001; 82550; 83690; 83735; 83880; 84100; 84484; 85025; 87040; 87086; 93005; 96374; 99285; J1885